=== PATIENT | male | born 1955 | race Caucasian/White ===

== ENCOUNTER → 2020-03-27 | Outpatient (REF) | payer OTHER ==
[~2020-03-27] MED LIST: ALEV220T26 PO
== END ==
LOC: M LAB REF 17:23
PROVIDERS: ATTEND Physician Assistant
DX: C44.619 Basal cell carcinoma of skin of left upper limb, including shoulder (principal); C44.519 Basal cell carcinoma of skin of other part of trunk

== ENCOUNTER → 2020-06-14 | Outpatient (REF) | payer OTHER | LOC: M LAB REF 17:24 | PROVIDERS: ATTEND Dermatology | DX: L90.5 Scar conditions and fibrosis of skin (principal) ==

== ENCOUNTER → 2025-04-11 | Outpatient (CLI) | payer MEDICARE | LOC: M CARPUL 15:06 | PROVIDERS: ATTEND Physician Assistant | DX: I77.810 Thoracic aortic ectasia (principal) ==

== ENCOUNTER → 2025-07-31 | Outpatient (CLI) | payer MEDICARE | LOC: M RAD 09:32 | PROVIDERS: ATTEND Physician Assistant | DX: H34.11 Central retinal artery occlusion, right eye (principal); I65.23 Occlusion and stenosis of bilateral carotid arteries ==

== ENCOUNTER → 2025-08-01 | Outpatient (CLI) | payer MEDICARE | LOC: M CARPUL 10:07 | PROVIDERS: ATTEND Physician Assistant | DX: H34.11 Central retinal artery occlusion, right eye (principal); I48.21 Permanent atrial fibrillation; I08.0 Rheumatic disorders of both mitral and aortic valves; I37.1 Nonrheumatic pulmonary valve insufficiency ==